=== PATIENT | female | born 1945 | race Hispanic/Latino ===

== ENCOUNTER → 2018-01-06 | Outpatient (CLI) | payer OTHER | END | disposition home or self-care (01) | LOC: RAH 14:55 | PROVIDERS: ATTEND Internal Medicine Cardiovascular Disease | DX: M47.896 Other spondylosis, lumbar region (principal); M48.061 Spinal stenosis, lumbar region without neurogenic claudication | CPT/HCPCS: 72148 ==

== ENCOUNTER 2018-11-20 11:34 | Emergency (ER) | payer OTHER ==
[2018-11-20] MEDS ORDERED: ACETAMINOPHEN-CODEINE 300/30MG TAB ONE (11:55)
== END 2018-11-20 12:18 | disposition home or self-care (01) ==
LOC: EDH 11:34
DX: S62.102A Fracture of unspecified carpal bone, left wrist, initial encounter for closed fracture (principal); E07.9 Disorder of thyroid, unspecified; W18.39XA Other fall on same level, initial encounter; Y93.01 Activity, walking, marching and hiking; Y92.098 Other place in other non-institutional residence as the place of occurrence of the external cause; Y99.8 Other external cause status
CPT/HCPCS: 29125; 73110

== ENCOUNTER 2020-04-26 06:53 | Observation (INO) | payer OTHER ==
[2020-04-24 15:44] LABS: BASOPHILS % (AUTO) 0.8 % (0.0-5.0); EOSINOPHILS % (AUTO) 3.7 % (0.0-8.0); HEMATOCRIT 36.5 % (36-48); LYMPHOCYTES % (AUTO) 34.7 % (21.0-51.0); MEAN CORPUSCULAR HEMOGLOBIN 30.3 pg (27.0-33.0); MEAN CORPUSCULAR HGB CONC 31.5 g/dL (32.0-36.0); MEAN CORPUSCULAR VOLUME 96.1 fL (79-99); NEUTROPHILS % (AUTO) 51.2 % (40.0-77.0); PLATELET COUNT (AUTO) 316 K/uL (130-400); RED CELL DISTRIBUTION WIDTH 13.6 % (11.0-15.5); WHITE BLOOD COUNT (AUTO) 6.5 K/uL (4.8-10.8)
[2020-04-24 15:50] LABS: POTASSIUM 4.3 mmol/L (3.5-5.1)
[2020-04-24 15:54] LABS: INR 0.98 (0.85-1.15); PARTIAL THROMBOPLASTIN TIME 27.1 SEC (26.3-35.5); PROTHROMBIN TIME 10.6 SEC (9.6-11.6)
[2020-04-24 16:10] LABS: APPEARANCE,URINE Clear (CLEAR); BILIRUBIN,URINE Negative (NEGATIVE); COLOR,URINE Yellow (YELLOW); GLUCOSE, URINE (UA) Negative (NEGATIVE); KETONES,URINE Negative (NEGATIVE); LEUKOCYTE ESTERASE ,URINE Negative (NEGATIVE); NITRATE,URINE Negative (NEGATIVE); OCCULT BLOOD,URINE Small (NEGATIVE); PROTEIN,URINE Negative (NEGATIVE)
[2020-04-24 16:20] LABS: RBC,URINE None Seen /HPF (0-1)
[2020-04-24 16:21] LABS: BACTERIA,URINE Rare /HPF (None Seen); SQUAMOUS EPITHELIAL CELL,UR 0-2 /HPF (0-2)
[2020-04-25 09:11] VITALS: BP 147/78
[2020-04-26] VITALS (28 sets, daily range): BP systolic 120–159; BP diastolic 42–78
[~2020-04-26] VITALS: Ht 157.5 cm; Wt 65.1 kg
[2020-04-26] MEDS: GENTAMICIN 80 MG/NS 100 ML PB 100 ML IV SCH ×2 (06:00→08:07)
[~2020-04-26 06:53] MED LIST: CEFTRIAXONE SODIUM 1 GM IVP SCH; LEVO125T11 PO; PANT40TA54 PO; TRAM50TA4 PO; VITAMIN D PO
--- NOTE | 2020-04-26 07:10 | NUR ---
preop pt arrived via w/c in no distress. pt oriented to room and call light. will continue to monitor pt.
[2020-04-26] MEDS ORDERED: LACTATED RINGERS 1000ML 1,000 ML IV ONE (07:31)
[2020-04-26] MEDS ORDERED: MITOMYCIN 40 MG VIAL ONE (08:12)
[2020-04-26] MEDS ORDERED: MITOMYCIN 40 MG VIAL IV SCH (08:30)
[2020-04-26] MEDS ORDERED: LIDOCAINE PF 2% 5ML ABBOJECT ONE (11:19)
[2020-04-26] MEDS ORDERED: DEXAMETHASONE SOD PHOSPHATE 10MG/ML 1ML VIAL ONE (11:19)
[2020-04-26] MEDS ORDERED: SUCCINYLCHOLINE 200MG/10ML SYR ONE (11:19)
[2020-04-26] MEDS ORDERED: MIDAZOLAM HCL 1 MG/ML 2ML VIAL ONE (11:20)
[2020-04-26] MEDS ORDERED: ONDANSETRON HCL 4 MG/2 ML VIAL ONE (11:20)
[2020-04-26] MEDS ORDERED: FENTANYL CITRATE PF 50 MCG/1 ML 2ML VIAL ONE ×2 (11:20→12:40)
[2020-04-26] MEDS ORDERED: PROPOFOL 10 MG/ML 20ML VIAL IV ONE (11:20)
[2020-04-26] MEDS ORDERED: ROCURONIUM 10MG/1ML SYR 10 MG/ML ML ONE ×2 (11:22→12:52)
[2020-04-26] MEDS ORDERED: ESMOLOL HCL 10 MG/ML 10 ML VIAL ONE (11:43)
[2020-04-26] MEDS ORDERED: IOHEXOL-350 50ML VIAL IV ONE (11:58)
[2020-04-26] MEDS ORDERED: IOHEXOL 350 MG/ML 100ML INFUS..BTL IV ONE (11:59)
[2020-04-26] MEDS ORDERED: METHYLENE BLUE 5 MG/ML AMP ONE (12:50)
[2020-04-26] MEDS ORDERED: EPHEDRINE SULFATE 50 MG/ML AMPULE ONE (13:02)
[2020-04-26] MEDS ORDERED: NEOSTIGMINE 5MG/5ML SYR IV ONE (14:05)
[2020-04-26] MEDS ORDERED: GLYCOPYRROLATE 1 MG/5 ML SYRINGE ONE (14:05)
[2020-04-26] MEDS ORDERED: MEPERIDINE-PF 50 MG/ML SYG ONE (14:30)
[2020-04-26] MEDS ORDERED: MEPERIDINE-PF 25 MG/ML SYG ONE (14:59)
--- NOTE | 2020-04-26 15:02 | NUR ---
25mg of demerol given slow IVP for lower abdomen pain
[2020-04-26 15:33] LABS: HEMATOCRIT 24.7 % (36-48); MEAN CORPUSCULAR HEMOGLOBIN 30.3 pg (27.0-33.0); MEAN CORPUSCULAR HGB CONC 31.2 g/dL (32.0-36.0); MEAN CORPUSCULAR VOLUME 97.2 fL (79-99); RED BLOOD CELL COUNT(AUTO) 2.54 MIL/uL (4.00-5.50); RED CELL DISTRIBUTION WIDTH 13.5 % (11.0-15.5); WHITE BLOOD COUNT (AUTO) 7.4 K/uL (4.8-10.8)
--- NOTE | 2020-04-26 16:00 | NUR ---
DRESSING changed by Karthikeyan RN from PACU serous cranberry colored drainage observed ELEANOR draining cranberry color urine lester cath light cranberry color urine observed
[2020-04-26 16:31] LABS: CREATININE 0.9 mg/dL (0.5-1.5); POTASSIUM 3.9 mmol/L (3.5-5.1)
[2020-04-26] MEDS ORDERED: ONDANSETRON HCL 4 MG/2 ML VIAL IVP PRN (16:45)
[2020-04-26] MEDS ORDERED: MORPHINE SULFATE 2 MG/ML 1ML SYG IVP PRN (17:00)
[2020-04-26] MEDS ORDERED: HYDROCODONE/ACETAMINOPHEN 5/325 MG TAB PO PRN ×2 (17:00)
[2020-04-26] MEDS: LACTATED RINGERS 1000ML 1,000 ML IV SCH (17:36)
--- NOTE | 2020-04-26 19:00 | NUR ---
DR ZENG discussed plan of care possible discharge in am pt voices understanding of discussed plans several biopsies taken ,will discuss further in office after results finalized
--- NOTE | 2020-04-26 19:00 | NUR ---
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
[2020-04-26] MEDS: CEFAZOLIN SODIUM 1 GM VIAL IVP SCH (20:48)
[2020-04-27 03:48] VITALS: BP 129/59
[2020-04-27] MEDS: CEFAZOLIN SODIUM 1 GM VIAL IVP SCH ×3 (04:11→20:49)
[2020-04-27] MEDS: KETOROLAC TROMETHAMINE 15MG/ML IV PRN ×2 (04:11→20:54)
[2020-04-27 05:22] LABS: BASOPHILS % (AUTO) 0.4 % (0.0-5.0); EOSINOPHILS % (AUTO) 0.3 % (0.0-8.0); HEMATOCRIT 34.2 % (36-48); LYMPHOCYTES % (AUTO) 14.2 % (21.0-51.0); MEAN CORPUSCULAR HEMOGLOBIN 30.2 pg (27.0-33.0); MEAN CORPUSCULAR HGB CONC 32.2 g/dL (32.0-36.0); MONOCYTES % (AUTO) 9.2 % (3.0-13.0); NEUTROPHILS % (AUTO) 75.5 % (40.0-77.0); PLATELET COUNT (AUTO) 262 K/uL (130-400); RED BLOOD CELL COUNT(AUTO) 3.64 MIL/uL (4.00-5.50); RED CELL DISTRIBUTION WIDTH 13.9 % (11.0-15.5); WHITE BLOOD COUNT (AUTO) 7.5 K/uL (4.8-10.8)
[2020-04-27 05:37] LABS: CREATININE 1.1 mg/dL (0.5-1.5); POTASSIUM 4.2 mmol/L (3.5-5.1)
[2020-04-27] MEDS: LACTATED RINGERS 1000ML 1,000 ML IV SCH ×2 (06:13→20:55)
[2020-04-27 08:00] VITALS: BP 119/49
--- NOTE | 2020-04-27 10:00 | NUR ---
ELEANOR REMOVED, APPROXIMATELY 5 ML OF BLOOD IN ELEANOR DISCARDED. SURG. INCISION CLOSED AND CLEAN, OPEN TO AIR. ABD. ERNIE READJUSTED.
[2020-04-27] MEDS: PANTOPRAZOLE SODIUM 40 MG TABLET.DR PO SCH (10:07)
[2020-04-27 11:00] VITALS: BP 121/55
--- NOTE | 2020-04-27 12:24 | NUR ---
CALL PLACED TO MR. JOSE TO GIVE HIM UPDATE ON SPOUSE, NO ANSWER, WILL CALL BACK.
--- NOTE | 2020-04-27 13:00 | NUR ---
DR. ZENG CALLED FOR UPDATE ON PT. FROM HIS STAND POINT OK TO DC HOME TODAY OR TOMORROW, DEPENDS ON HOW PT. IS FEELING.ADVISED PT. ON WHAT DR. ZENG SAID AND SAID STILL HAVING SOME SUPRA PUBIC PAIN AND FEELS MORE COMFORTABLE STAYING OVERNIGHT. DR. ZENG NOTIFIED.
--- NOTE | 2020-04-27 13:04 | NUR ---
SPOKE WITH DAUGHTER YONAS, UPDATE GIVEN ON HER MOM .
--- NOTE | 2020-04-27 15:02 | NUR ---
1323 patient signed IM Letter, I faxed IM Letter to [phone] and placed in chart under consent tab.
--- NOTE | 2020-04-27 16:40 | NUR ---
NEW IV START RT. FOREARM WITH 22G. IVF CONTINUE TO INFUSE AT 75ML/HR.
--- NOTE | 2020-04-27 16:51 | NUR ---
DAUGHTER YONAS NOTIFIED THAT HER MOM WILL BE STAYING UNTIL TOMORROW AM.
[2020-04-27 17:00] VITALS: BP 126/58
[2020-04-27 20:00] VITALS: BP 126/53
[2020-04-27 23:51] VITALS: BP 131/63
[2020-04-28] MEDS: KETOROLAC TROMETHAMINE 15MG/ML IV PRN (02:58)
[2020-04-28] MEDS: CEFAZOLIN SODIUM 1 GM VIAL IVP SCH (02:58)
[2020-04-28 04:35] VITALS: BP 136/72
[2020-04-28] MEDS ORDERED: CEPH500B PO (07:37)
[2020-04-28] MEDS ORDERED: OXYB10TA4 PO (07:38)
[2020-04-28 08:00] VITALS: BP 137/77
[2020-04-28] MEDS: LACTATED RINGERS 1000ML 1,000 ML IV SCH (08:20)
[2020-04-28] MEDS: PANTOPRAZOLE SODIUM 40 MG TABLET.DR PO SCH (08:37)
--- NOTE | 2020-04-28 09:40 | NUR ---
DISCHARGED NOW USING TEACH BACK. DC INST GIVEN TO PT. AND ALSO TO DAUGHTER YONAS VIA PHONE. 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 ZENG IN 1 WEEK AND APPT. HAS BEEN SET UP.SALINE LOCK REMOVED, INTACT, SITE HEALTHY. WHEELED DOWN STAIRS WHERE DAUGHTER IS WAITING FOR HER
== END 2020-04-28 10:00 | disposition home or self-care (01) ==
LOC: DAH 06:53 → DAHIP 06:54 → 3DH 16:00
PROVIDERS: ADMIT Urology; ATTEND Urology
DX: C67.4 Malignant neoplasm of posterior wall of bladder (principal); Z20.828 Contact with and (suspected) exposure to other viral communicable diseases; C68.9 Malignant neoplasm of urinary organ, unspecified; Z85.51 Personal history of malignant neoplasm of bladder
CPT/HCPCS: 36415 ×3; 52204; 71046; 74430; 80048 ×3; 81001; 85025 ×2; 85027; 85610; 85730; 87088; 87426; 96361 ×3; 96365; 96375 ×2; 96376 ×2; A4213; A4215; A4221; A4222; A4223; A4344; A4354; A4358; A4600; A4649; A4663; A4930; A6260; C1769; G0378 ×19; J0330; J0690 ×5; J0696; J1100; J1580; J1885 ×3; J2001; J2175 ×2; J2250; J2405; J2704; J2710; J3010 ×2; J3490 ×3; J7030; J7120 ×5; J9280; Q9967; Q9968; U0003; 93005

== ENCOUNTER 2021-08-20 15:05 | Emergency (ER) | payer OTHER ==
[~2021-08-20] VITALS: Ht 152.4 cm; Wt 68.0 kg
[~2021-08-20 15:05] MED LIST changes: -CEFTRIAXONE SODIUM 1 GM IVP SCH; +CEPH500B PO; +OXYB10TA4 PO
[2021-08-20 15:54] LABS: BASOPHILS % (AUTO) 0.7 % (0.0-5.0); EOSINOPHILS % (AUTO) 1.6 % (0.0-8.0); HEMATOCRIT 33.6 % (36-48); LYMPHOCYTES % (AUTO) 16.1 % (21.0-51.0); MEAN CORPUSCULAR HEMOGLOBIN 30.4 pg (27.0-33.0); MEAN CORPUSCULAR HGB CONC 31.3 g/dL (32.0-36.0); MEAN CORPUSCULAR VOLUME 97.4 fL (79-99); MONOCYTES % (AUTO) 7.7 % (3.0-13.0); NEUTROPHILS % (AUTO) 73.2 % (40.0-77.0); PLATELET COUNT (AUTO) 313 K/uL (130-400); RED BLOOD CELL COUNT(AUTO) 3.45 MIL/uL (4.00-5.50); RED CELL DISTRIBUTION WIDTH 13.2 % (11.0-15.5); WHITE BLOOD COUNT (AUTO) 7.5 K/uL (4.8-10.8)
[2021-08-20 16:04] LABS: POTASSIUM 3.6 mmol/L (3.5-5.1)
[2021-08-20 16:09] LABS: ALBUMIN 3.9 g/dL (3.5-5.0); BILIRUBIN,TOTAL 0.4 mg/dL (0.2-1.0); TOTAL PROTEIN, SERUM 7.5 g/dL (6.0-8.3)
[2021-08-20 16:11] LABS: INR 1.06 (0.85-1.15); PROTHROMBIN TIME 11.5 SEC (9.6-11.6)
[2021-08-20 16:19] LABS: B-TYPE NATRIURETIC PEPTIDE 162 pg/mL (0-100)
[2021-08-20] MEDS ORDERED: CEFTRIAXONE 1G VIAL IVP ONE (16:30)
[2021-08-20] MEDS ORDERED: CEPH500B PO (16:44)
[2021-08-20 17:14] VITALS: BP 154/62
== END 2021-08-20 17:44 | disposition home or self-care (01) ==
LOC: EDH 15:05
DX: L03.115 Cellulitis of right lower limb (principal); Z88.6 Allergy status to analgesic agent; Z90.5 Acquired absence of kidney; Z85.3 Personal history of malignant neoplasm of breast; Z85.51 Personal history of malignant neoplasm of bladder; Z90.49 Acquired absence of other specified parts of digestive tract
CPT/HCPCS: 36415; 80053; 83880; 84484; 85025; 85610; 93971; 96374; 99284; J0696

== ENCOUNTER → 2021-09-19 | Outpatient (CLI) | payer OTHER | END | disposition home or self-care (01) | LOC: RAH 13:06 | PROVIDERS: ATTEND Family Medicine | DX: I70.201 Unspecified atherosclerosis of native arteries of extremities, right leg (principal); M79.89 Other specified soft tissue disorders; M79.661 Pain in right lower leg | CPT/HCPCS: 93926 ==

== ENCOUNTER → 2021-11-07 | Outpatient (CLI) | payer OTHER ==
[~2021-11-07] MED LIST changes: +GADOTERATE MEGLUMINE 10 MMOL/20 ML VIAL IV ONE
== END | disposition home or self-care (01) ==
LOC: RAH 12:47
PROVIDERS: ATTEND Family Medicine
DX: M47.26 Other spondylosis with radiculopathy, lumbar region (principal); M48.061 Spinal stenosis, lumbar region without neurogenic claudication
CPT/HCPCS: 72158; A9575